=== PATIENT | male | born 1990 | race Hispanic/Latino ===

== ENCOUNTER 2022-03-29 08:51 | Emergency (ER) | payer OTHER ==
[~2022-03-29] VITALS: Ht 170.2 cm; Wt 81.2 kg
[2022-03-29] MEDS ORDERED: ONDANSETRON ODT8 MG PO (09:09)
[2022-03-29] MEDS ORDERED: HYDROXYZINE HCL50 MG PO (09:09)
[2022-03-29] MEDS ORDERED: DILAUDID2 MG PO (10:13)
[2022-03-29] MEDS ORDERED: ONDANSETRON ODT4 MG PO (10:13)
--- OUTSIDE RECORDS SUMMARY | 2022-03-29 10:48 | XMS ---
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 Jemal has no Care Guidelines for this patient. [place] VISIT COUNT (12 MO.) 1 YANG Lawson TOTAL 1 NOTE: Visits indicate total known visits. ED/UCC VISIT TRACKING (12 MO.) 03/29/2022 08:53 YANG Ley OR TYPE: Emergency COMPLAINT: - ABD PAIN INPATIENT VISIT TRACKING (12 MO.) No inpatient visits to display in this time frame [email or web address]
== END 2022-03-29 10:34 | disposition home or self-care (01) ==
LOC: ED 08:51 → EDSEX 08:53 → ED 08:53
DX: K86.0 Alcohol-induced chronic pancreatitis (principal); F10.20 Alcohol dependence, uncomplicated; Z79.899 Other long term (current) drug therapy
CPT/HCPCS: 36415; 80053; 81001; 83690; 83735; 85025; 96361; 96374; 96375; 99284-25; J1170; J1885; J2405; J7030